=== PATIENT | female | born 1990 | race Caucasian/White ===

== ENCOUNTER 2021-10-25 14:17 | Emergency (ER) | payer MEDICAID, SELFPAY ==
[2021-10-25 15:10] VITALS: BP 131/78; PULSE 80; RESP 18; TEMP 36.8; O2SAT 100; BMI 25.7
[2021-10-25 15:33] LABS: UTC Strep Screen (Rapid) Positive (Negative)
--- NOTE | 2021-10-25 15:46 | HMH.EDUTC ---
[facility] [place] Clinical Impression: Strep throat Disposition: Home, Self-Care Condition on Discharge: Good Instructions: DI for Strep Throat, Strep Throat, Amoxicillin Additional Instructions: *Monitor Temp, Over the counter Motrin or Tylenol as directed/as needed Tylenol every 4 hours and Motrin every 6 hours (as long as your family doctor has told you that you can take it) for fever or pain. and straight to ER if unable to lower temp less than 101.0 after medication given *Warm salt water gargles may help to soothe the throat *Throat Lozenges *Warm fluids like tea with honey may help to soothe the throat *Sleep elevated *Humidifier/Vaporizer *If you did not take Penicillin shot or was unable to, start taking antibiotic immediately and make sure that you take it for the FULL length of time although you should start to feel better in 24-48 hours *change toothbrush and toothpaste 24-48 hours after starting to take antibiotics so you do not reinfect yourself Monitor Temp. Tylenol and/or Ibuprofen as needed. ER if fever is no less than 101 despite alternating Tylenol and Ibuprofen * Encourage fluids, water, Gatorade, powerade, pedialyte if /toddler/or child *Cold fluids, popsicles and ice cream may feel good on his throat Follow up IMMEDIATELY for new or worsening symptoms or no Noticeable improvement over the next 48-72 hours. 911 for difficulty breathing or swallowing Prescriptions: Amoxicillin [Amoxicillin 500mg Cap] 500 mg PO BID 10 Days #20 cap Transmission Status: Pending to [facility] #[id number] Referrals: Provider,Referral, [Primary Care Provider] - As needed Forms: Work/School Release Medical Decision Making - Francisco Inquiry Pt receiving controlled substance: No Francisco was queried for this patient: No Vital Signs: 10/25/21 15:10 Temperature 98.3 F Temperature Source Oral Pulse Rate [Right Brachial] 80 Respiratory Rate 18 Blood Pressure [Right Arm] 131/78 Blood Pressure Mean [Right Arm] 95 Blood Pressure Source [Right Arm] Automatic Cuff Blood Pressure Position [Right Arm] Sitting 02 Sat by Pulse Oximetry 100 Oxygen Delivery Method Room Air - Lab Data Lab results reviewed: Yes: I reviewed the patient's lab results. Lab Results 10/25/21 15:21: Strep Scn Rapid Clinic Positive A [facility] [place] [facility] [place] - General Stated complaint: MORA, sore throat, fever Time Seen by Provider: 10/25/21 15:46 Mode of Arrival: Ambulatory Source of Information: Patient Limitations: No Limitations Description of Symptoms (Recalled from Triage Doc. by RN): PATIENT C/O SORE THROAT, FEVER AND BODY ACHES X 2 DAYS HEENT Symptoms (Recalled from RN notes): Yes Resp Symptoms (Recalled from RN notes): No Skin Symptoms (Recalled from RN notes): No MS Symptoms (Recalled from RN notes): No Functional Status (Recalled from RN notes): WNL - History of Present Illness Provider Complaint: Patient states that she has been having headache, sore throat and body aches for several days States that son had strep throat last week now she is having symptoms - Related Data Previous Rx's Medication Instructions Recorded Amoxicillin [Amoxicillin 500mg 500 mg PO BID 10 Days #20 cap 10/25/21 Cap] Allergies Allergy/AdvReac Type Severity Reaction Status Date / Time No Known Allergies Allergy Verified 10/25/21 15:25 - Worker's Comp Is this a Worker's Comp case?: No [facility] History - Hepatitis A Screen Attestation statement:: This patient has been screened for Hepatitis A risk factors. I have reviewed the patient's past medical history: Yes Laterality Cases: Bilateral: Tonsillectomy - Social History Alcohol Intake: never Occupational Status: other ROS Obtained: Yes All systems reviewed & no additional complaints, Yes Systems reviewed as appropriate & no additional complaints - Constitutional Constitutional: Reports system reviewed and no additional complaints, except as docu, Reports fever(s)
[2021-10-25 16:05] VITALS: BP 131/78; PULSE 80; RESP 18; TEMP 36.8; O2SAT 100
== END 2021-10-25 16:11 | disposition home or self-care (01) ==
PROVIDERS: Emergency Provider Nurse Practitioner
DX: J02.0 Streptococcal pharyngitis (principal)
CPT/HCPCS: 87880; 99212; G0463

== ENCOUNTER 2021-10-25 18:23 | Observation (INO) | payer MEDICAID, SELFPAY ==
[2021-10-25 18:24] VITALS: BP 106/69; PULSE 78; RESP 16; TEMP 36.5; O2SAT 99; BMI 25.6
[2021-10-25 19:32] VITALS: BMI 25.6
[2021-10-25 19:43] LABS: Microscopic, Urine URINE MICROSCOPIC (MICROSCOPIC)
[2021-10-25 19:45] LABS: Basophils # 0.1 K/mm3 (0-0.2); Basophils % 0.4 % (0.1-2.0); Eosinophils # 0.1 K/mm3 (0.0-0.4); Hematocrit 38.3 % (37.0-47.0); Lymphocytes # 1.5 K/mm3 (0.7-4.5); Lymphocytes % 11.8 % (10-50); Mean Corpuscular HGB Conc 31.4 g/dL (31.8-35.4); Mean Corpuscular Hemoglobin 28.6 pg (27.0-31.2); Mean Platelet Volume 7.6 fl (7.4-10.4); Monocytes # 0.4 K/mm3 (0.1-1.0); Monocytes % 3.4 % (1.7-9.3); Neutrophils # 10.7 K/mm3 (1.8-7.8); Neutrophils % 83.5 % (37.0-80.0); Platelet Count 325 K/mm3 (142-424); White Blood Count 12.8 K/mm3 (4.8-10.8)
[2021-10-25 19:52] LABS: Appearance,Urine CLOUDY (Clear); Bilirubin,Urine Negative (Negative); Blood, Urine 3+ (Negative); Color,Urine RED (Yellow); Glucose,Urine (UA) TRACE (Negative); Ketones,Urine 2+ (Negative); Leukocyte Esterase,Urine TRACE (Negative); Nitrate,Urine POSITIVE (Negative); Protein,Urine 2+ (Negative); Specific Gravity, Urine >= 1.030 (1.005-1.030)
[2021-10-25 19:52] LABS: Potassium 3.6 mmoL/L (3.5-5.1); Sodium 138 mmol/L (136-145)
[2021-10-25 19:54] LABS: Lipase 33 U/L (23-300)
[2021-10-25 19:55] LABS: Albumin Level 4.5 g/dl (3.5-5.0); Albumin/Globulin Ratio 1.2 (1.1-1.8); Alkaline Phosphatase 88 U/L (38-126); Amylase 61 U/L (30-110); Carbon Dioxide 25 mmol/L (22.0-30.0); Globulin 3.7 g/dL (1.3-3.2); HCG Qualitative, Serum Positive (Negative); Magnesium 2.1 mg/dl (1.6-2.3); Total Protein,Serum 8.2 g/dl (6.3-8.2)
[2021-10-25 19:55] LABS: Urine Pregnancy, HCG Qual. Positive (Negative)
--- NOTE | 2021-10-25 19:59 | US_ITS ---
PROCEDURE INFORMATION: Exam: US , Transvaginal Exam date and time: 10/25/2021 9:04 PM Age: 31 years old Clinical indication: Other: Pain, cramping, bleeding, passed large clot; Gestational age or lmp: Lmp September 03, 2021; ; Additional info: New , spontaneous bleeding and abd pain, passed large clot , weakness, chilling TECHNIQUE: Imaging protocol: Real-time transvaginal obstetrical ultrasound of the maternal pelvis with image documentation. Transvaginal imaging was used for better evaluation of the fetus, adnexa, and/or cervix. COMPARISON: No relevant prior studies available. FINDINGS: UTERUS: The uterus is gravid with a single abnormal gestational sac containing linear bands and debris without discernible pole or yolk sac (patient passed large blood clot prior to the scan). . ADNEXA: RIGHT ovary measures 9.1 mL and LEFT ovary 6.3 mL. Adnexa are unremarkable without evidence of an adnexal mass or abnormality. No free fluid in the pelvis. IMPRESSION: 1. Findings suspicious for ongoing/incomplete with retained products of conception. 2. No sonographic evidence of a viable intrauterine or an ectopic .
--- NOTE | 2021-10-25 20:00 | PC.NURSE ---
Mario in radiology notified of need for US to be called in
[2021-10-25 20:01] LABS: C-Reactive Protein 16.5 mg/L (0-4)
--- NOTE | 2021-10-25 20:03 | PC.NURSE ---
Accompanied md while updating the patient. MD advised patient that her test was positive and that he had ordered an ultrasound to further determine her condition. Patient verbalized understanding.
--- NOTE | 2021-10-25 20:15 | PC.NURSE ---
Patient is resting in bed. IV morphine 4mg ordered and given. IV phenergan 25mg given. Pt describes the pain as a 9/10.
[2021-10-25 20:30] LABS: Bilirubin,Total < 0.1 mg/dl (0.2-1.3)
[2021-10-25 20:31] LABS: Erythrocyte Sedimentation Rate 55 mm/hr (0-20)
[2021-10-25 20:37] LABS: Alanine Aminotransferase 57 U/L (12-78); Anion Gap 12.6 mEq/L (5-15); Aspartate Amino Transferase 59 U/L (14-36); Blood Urea Nitrogen 7 mg/dl (7-17); Calcium 9.2 mg/dl (8.4-10.2); Chloride 104 mmol/L (98-107); Creatinine Clearance Estimated 117 mL/min (50-200); Estimated Glomerular Filt Rate 98 ml/min (>60); GFR (African American) 118 ML/MIN (>60); Glucose 112 mg/dl (74-100)
--- NOTE | 2021-10-25 20:51 | HMH.EDPREG ---
ED Disposition Clinical Impression: Miscarriage, COVID-19 Disposition: Admitted as Observation Condition on Discharge: Good - Critical Care Critical Care Time: No Attestation: On 10/25/21, the high probability of a clinically significant, sudden or life threatening deterioration of the following system(s) required my full and direct attention, intervention and personal management. The time I documented below is in addition to time spent performing reported procedures but includes the following listed in this critical care notation. Medical Decision Making - Medical Records Medical records reviewed: Yes: I reviewed the patient's medical records. - Francisco Inquiry Pt receiving controlled substance: No Vital Signs: 10/25/21 18:24 Temperature 97.7 F Temperature Source Oral Pulse Rate [Left] 78 Respiratory Rate 16 Blood Pressure [Right Arm] 106/69 L Blood Pressure Mean [Right Arm] 81 02 Sat by Pulse Oximetry 99 Oxygen Delivery Method Room Air - Lab Data Lab results reviewed: Yes: I reviewed the patient's lab results. Lab Results 10/25/21 19:30: WBC 12.8 H, RBC 4.20, Hgb 12.0 L, Hct 38.3, MCV 91.0, MCH 28.6, MCHC 31.4 L, RDW 13.0, Plt Count 325, MPV 7.6, Neut % (Auto) 83.5 H, Lymph % (Auto) 11.8, Steele % (Auto) 3.4, Eos % (Auto) 1.0, Baso % (Auto) 0.4, Neut # (Auto) 10.7 H, Lymph # (Auto) 1.5, Steele # (Auto) 0.4, Eos # (Auto) 0.1, Baso # (Auto) 0.1 10/25/21 19:30: Sodium 138, Potassium 3.6, Chloride 104, Carbon Dioxide 25, Anion Gap 12.6, BUN 7, Creatinine 0.70, Estimated Creat Clear 117, Estimated GFR 98, Est GFR ( Amer) 118, Glucose 112 H, Calcium 9.2, Total Bilirubin < 0.1 L, AST 59 H, ALT 57, Alkaline Phosphatase 88, C-Reactive Protein 16.5 H, Total Protein 8.2, Albumin 4.5, Globulin 3.7 H, Albumin/Globulin Ratio 1.2, Amylase 61 10/25/21 19:30: ESR 55 H 10/25/21 19:30: Magnesium 2.1, Lipase 33, Procalcitonin 0.038 10/25/21 19:30: Serum HCG, Qual Positive 10/25/21 19:30: HCG, Quant [id number] H 10/25/21 19:38: Urine Color Red, Urine Appearance Cloudy, Urine pH 6.0, Ur Specific [place] >= 1.030, Urine Protein 2+, Urine Glucose (UA) Trace, Urine Ketones 2+, Urine Blood 3+, Urine Nitrate Positive, Urine Bilirubin Negative, Urine Urobilinogen 1.0, Ur Leukocyte Esterase Trace, Urine RBC Tntc, Urine WBC 3-5, Ur Squamous Epith Cells Occasional, Urine Bacteria Trace 10/25/21 19:38: Urine HCG, Qual Positive 10/25/21 20:12: SARS-CoV-2 (PCR) Detected A, Influenza A Untype (PCR) Not detected, Influenza Type B (PCR) Not detected 10/25/21 20:24: Blood Type O Positive Result diagrams: 10/25/21 19:30 10/25/21 19:30 Orders (Tests/Meds): ED MEDICATIONS Generic Name Dose Route Start Last Admin Trade Name Freq PRN Reason Stop Dose Admin Sodium Chloride 1,000 mls @ 999 mls/hr 10/25/21 19:45 10/25/21 19:42 Sod Chlor 0.9% 1000ml Bag IV 10/25/21 20:45 999 mls/hr .Q1H1M BRIAN Administration Sodium Chloride 1,000 mls @ 999 mls/hr 10/25/21 21:45 Sod Chlor 0.9% 1000ml Bag IV 10/25/21 22:45 .Q1H1M BRIAN Discontinued Medications Generic Name Dose Route Start Last Admin Trade Name Freq PRN Reason Stop Dose Admin Ketorolac Tromethamine 30 mg 10/25/21 19:34 10/25/21 20:01 Ketorolac 30mg/Ml Vial IV 10/25/21 19:35 Not Given ONCE ONE Ketorolac Tromethamine 30 mg 10/25/21 21:37 Ketorolac 30mg/Ml Vial IV 10/25/21 21:38 ONCE ONE Morphine Sulfate 4 mg 10/25/21 20:02 10/25/21 20:08 Morphine 4mg/Ml Syringe IV 10/25/21 20:03 4 mg ONCE ONE Administration Ondansetron HCl 4 mg 10/25/21 19:34 10/25/21 20:01 Ondansetron 4mg/2ml Vial IV 10/25/21 19:35 Not Given ONCE ONE Promethazine HCl 25 mg 10/25/21 20:07 10/25/21 20:08 Promethazine Hcl 25mg/Ml 1ml Vial IV 10/25/21 20:08 25 mg ONCE ONE Administration Sodium Chloride 25 ml 10/25/21 20:07 10/25/21 20:08 Sodium Chloride 0.9% 25ml Bag IV 10/25/21 20:08 25 ml ONCE ONE Administration ORDERS Category D
[2021-10-25 20:55] LABS: Procalcitonin 0.038 ng/mL (0.0-2.0)
[2021-10-25 21:02] LABS: RBC,Urine TNTC #/hpf (0-3); Squamous Epithelial Cell,Urine Occasional #/hpf (0-5)
[2021-10-25 21:03] LABS: Bacteria,Urine Trace /lpf
[2021-10-25 21:04] LABS: Coronavirus 19, PCR Detected (NotDetected); Influenza A, PCR Not Detected (NotDetected); Influenza B, PCR Not Detected (NotDetected)
[2021-10-25 21:22] LABS: HCG,Quantitative 18186 mIU/ml (0-5.42)
--- NOTE | 2021-10-25 21:25 | PC.NURSE ---
Pt back in room from U/S
[2021-10-25 22:05] VITALS: BP 108/57; PULSE 69; RESP 18; TEMP 36.8; O2SAT 99
--- NOTE | 2021-10-25 22:09 | PC.NURSE ---
Pt created a password of [email or web address] for family updates.
[2021-10-25 22:32] VITALS: BP 103/57; PULSE 82; RESP 16; TEMP 36.9; O2SAT 100; BMI 25.7
--- NOTE | 2021-10-25 22:32 | PC.NURSE ---
PT ARRIVED TO FLOOR VIA W/C FROM ED @ 0809
[2021-10-26 03:35] VITALS: BP 109/61; PULSE 79; RESP 16; TEMP 37; O2SAT 98
--- NOTE | 2021-10-26 04:39 | PC.NURSE ---
Pt has rested this shift. Denies any discomfort at this time. Has had 2 pad changes since arriving to the floor with moderate lochia rubra. Has voided x2. VSS. Medications administered per mar. Ambulates with stand by assist. Pt is fall risk. Education provided. She is currently NPO. Call light within reach.
[2021-10-26 05:03] VITALS: BMI 25.6
[2021-10-26 06:52] LABS: Basophils % 0.4 % (0.1-2.0); Eosinophils # 0.1 K/mm3 (0.0-0.4); Eosinophils % 2.2 % (0.1-12.0); Hematocrit 32.9 % (37.0-47.0); Lymphocytes # 2.2 K/mm3 (0.7-4.5); Lymphocytes % 37.4 % (10-50); Mean Corpuscular HGB Conc 32.2 g/dL (31.8-35.4); Mean Corpuscular Hemoglobin 29.4 pg (27.0-31.2); Mean Corpuscular Volume 91.3 fl (81-99); Mean Platelet Volume 7.9 fl (7.4-10.4); Monocytes # 0.4 K/mm3 (0.1-1.0); Monocytes % 6.8 % (1.7-9.3); Neutrophils # 3.2 K/mm3 (1.8-7.8); Neutrophils % 53.3 % (37.0-80.0); Platelet Count 269 K/mm3 (142-424); Red Cell Distribution Width 13.1 % (11.5-17.5)
--- NOTE | 2021-10-26 07:30 | US_ITS ---
FINAL REPORT CLINICAL HISTORY: missed AB FINDINGS: Transvaginal sonographic images of the pelvis were obtained. The uterus measures 8.7 x 4.9 x 5.2 cm. The endometrium measures 1.77 cm. There is heterogeneous material in the endometrial cavity measuring 18 mm, may represent retained products from conception. The right ovary measures 2.7 x 2.0 x 2.0 cm. The left ovary measures 2.6 x 2.5 x 1.6 cm. There is a small amount of pelvic free fluid. IMPRESSION: Heterogeneous material in the endometrial cavity, may represent retained product from conception. Small amount of pelvic free fluid. Reviewed, Interpreted and Dictated by Jonnie Jaramillo III, MD Transcribed by Frances Espitia Authenticated and [facility]
[2021-10-26 07:31] LABS: Hemoglobin 10.6 g/dL (12.2-16.2)
--- NOTE | 2021-10-26 07:33 | HMH.PHAVTE ---
[facility] Pharmacy VTE Monitoring - Patient Demographics Admission date: 10/26/21 Report Date: 10/26/21 Time: 07:33 Allergies/Adverse Reactions: Patient Allergies animal dander Allergy (Verified 10/25/21 23:13) tomato Allergy (Verified 10/25/21 23:12) velvet Adverse Reaction (Unknown, Uncoded 10/25/21 23:12) Height: 1.57 m Weight: 63.219 kg Patient Problems: Current Active Problems Miscarriage (Acute) COVID-19 (Acute) - VTE Risk Labs: VTE Related Lab Results Hgb 10.6 g/dL (12.2-16.2) L D 10/26/21 06:42 Hct 32.9 % (37.0-47.0) L 10/26/21 06:42 Plt Count 269 K/mm3 (142-424) 10/26/21 06:42 BUN 7 mg/dl (7-17) 10/25/21 19:30 Creatinine 0.70 mg/dl (0.52-1.04) 10/25/21 19:30 Estimated Creat Clear 117 mL/min (50-200) 10/25/21 19:30 VTE Risk Level: Low Risk Clinical Trial Participant: No - Prophylaxis VTE Prophylaxis Ordered?: Yes Types of VTE Prophylaxis: TEDS Knee High
[2021-10-26 08:00] VITALS: BP 107/59; PULSE 78; RESP 16; TEMP 37.1; O2SAT 100
--- NOTE | 2021-10-26 08:15 | PC.NURSE ---
Pt off floor to u/s with RAD at this time.
--- NOTE | 2021-10-26 11:22 | HMH.HPDC ---
General - General Admission date:: 10/25/21 Discharge date: 10/26/21 *Admission Date: 10/26/21 *Chief complaint: Strep throat, miscarriage *History of present illness: She came into the ER last night and pt states that she has extreme pain in the lower abdomen that goes around to her back the pain radiates down her thighs. The pt was seen in the [facility] today and diagnosed with strep and the pain started after she picked up her medicine. the pt reports she has bad cramps. While in the ER she had passed some clots. An ultrasound showed a gestational sac with no heart rate activity and no fetus. As result of that she was admitted overnight for control of pain and possible miscarriage. She tested positive for COVID as well. She has not been taking any form of control and said that her was going to get a vasectomy. She recently moved from [place]. [facility] History I have reviewed the patient's past medical history: Yes Medical History: Denies:: Cancer, Diabetes Mellitus Type 1, Diabetes Mellitus Type 2, MRSA *Have you ever received a pneumonia vaccine?: No *Have you received a flu vaccine this season?: No Laterality Cases: Bilateral: Tonsillectomy Amputation: No - *Social History Smoking Status: Unknown if ever smoked Alcohol Intake: never *Occupational Status:: employed *Travel in the last 8 weeks: None Family Hx:: Cancer, Hypertension Review of Systems - Review of Systems Review of systems:: pertinent systems reviewed and negative unless documented below - *Neurologic Denies localized weakness, Denies seizure-like activity Exam Vital signs and Labs for Last 24 Hours: Temp Pulse Resp BP Pulse Ox 98.7 F 78 16 107/59 L 100 10/26/21 08:00 10/26/21 08:00 10/26/21 08:00 10/26/21 08:00 10/26/21 08:00 Laboratory Results - last 24 hr 10/25/21 19:30: WBC 12.8 H, RBC 4.20, Hgb 12.0 L, Hct 38.3, MCV 91.0, MCH 28.6, MCHC 31.4 L, RDW 13.0, Plt Count 325, MPV 7.6, Neut % (Auto) 83.5 H, Lymph % (Auto) 11.8, [place] % (Auto) 3.4, Eos % (Auto) 1.0, Baso % (Auto) 0.4, Neut # (Auto) 10.7 H, Lymph # (Auto) 1.5, [place] # (Auto) 0.4, Eos # (Auto) 0.1, Baso # (Auto) 0.1 10/25/21 19:30: Sodium 138, Potassium 3.6, Chloride 104, Carbon Dioxide 25, Anion Gap 12.6, BUN 7, Creatinine 0.70, Estimated Creat Clear 117, Estimated GFR 98, Est GFR ( Amer) 118, Glucose 112 H, Calcium 9.2, Total Bilirubin < 0.1 L, AST 59 H, ALT 57, Alkaline Phosphatase 88, C-Reactive Protein 16.5 H, Total Protein 8.2, Albumin 4.5, Globulin 3.7 H, Albumin/Globulin Ratio 1.2, Amylase 61 10/25/21 19:30: ESR 55 H 10/25/21 19:30: Magnesium 2.1, Lipase 33, Procalcitonin 0.038 10/25/21 19:30: Serum HCG, Qual Positive 10/25/21 19:30: HCG, Quant [id number] H 10/25/21 19:38: Urine Color Red, Urine Appearance Cloudy, Urine pH 6.0, Ur Specific [place] >= 1.030, Urine Protein 2+, Urine Glucose (UA) Trace, Urine Ketones 2+, Urine Blood 3+, Urine Nitrate Positive, Urine Bilirubin Negative, Urine Urobilinogen 1.0, Ur Leukocyte Esterase Trace, Urine RBC Tntc, Urine WBC 3-5, Ur Squamous Epith Cells Occasional, Urine Bacteria Trace 10/25/21 19:38: Urine HCG, Qual Positive 10/25/21 20:12: SARS-CoV-2 (PCR) Detected A, Influenza A Untype (PCR) Not detected, Influenza Type B (PCR) Not detected 10/25/21 20:24: Blood Type O Positive 10/26/21 06:42: WBC 6.0 D, RBC 3.60 L, Hgb 10.6 L D, Hct 32.9 L, MCV 91.3, MCH 29.4, MCHC 32.2, RDW 13.1, Plt Count 269, MPV 7.9, Neut % (Auto) 53.3, Lymph % (Auto) 37.4, [place] % (Auto) 6.8, Eos % (Auto) 2.2, Baso % (Auto) 0.4, Neut # (Auto) 3.2, Lymph # (Auto) 2.2, [place] # (Auto) 0.4, Eos # (Auto) 0.1, Baso # (Auto) 0.0 I & O for Last 24 hours: Intake & Output 10/23/21 10/24/21 10/25/21 10/26/21 11:59 11:59 11:59 11:59 Intake Total 220 / 220 Output Total 850 / 850 Balance -630 / -630 Weight 139 lb 6 oz - Constitutional no acute distress - *Routine HEENT Exam Head: Present: normocephalic Eye: Present: EOMI, PERRL
[2021-10-26 11:54] VITALS: BP 98/61; PULSE 81; RESP 18; TEMP 37.2; O2SAT 97
--- NOTE | 2021-10-26 11:59 | PC.NURSE ---
Awaiting clarification for d/c on abt order from Dr. Nur. Spoke w/ Connie in office, she stated he was at lunch at this time and would let him know.
--- NOTE | 2021-10-26 12:14 | PC.NURSE ---
Offered pt meal, stated she would eat when she got home. Pt did take some gram crackers and a yadira mist
--- NOTE | 2021-10-26 13:53 | PC.NURSE ---
Educated pt on med cytotec and use of contraceptives. Pt states is planning to get a vascetomy.
== END 2021-10-26 13:03 | disposition home or self-care (01) ==
LOC: ER 20:33 → 2ND 21:45 → ER 23:26
PROVIDERS: Admitting Provider Nurse Practitioner Obstetrics & Gynecology; Emergency Provider Emergency Medicine; Visit Provider Nurse Practitioner Obstetrics & Gynecology
DX: U07.1 COVID-19 (principal); J02.0 Streptococcal pharyngitis; O03.9 Complete or unspecified spontaneous abortion without complication
CPT/HCPCS: 36415; 76817; 80053; 81001; 81025; 82150; 83690; 83735; 84145; 84702; 84703; 85025; 85651; 86140; 86900; 86901; 99285; C9803; G0378; J0561; U0003; U0005